=== PATIENT | female | born 1990 | race Caucasian/White ===

== ENCOUNTER 2019-07-19 10:49 | Emergency (ER) | payer SELFPAY ==
[~2019-07-19] VITALS: Ht 162.6 cm; Wt 59.0 kg
[2019-07-19] MEDS ORDERED: IV NORMAL SALINE 1000 ML BAG IV ONE (11:00)
[2019-07-19 11:07] LABS: BASOPHILS # (AUTO) 0.2 K/uL (0.0-8.0); BASOPHILS % (AUTO) 2.6 % (0.0-2.0); EOSINOPHILS # (AUTO) 0.3 K/uL (0.0-0.7); EOSINOPHILS % (AUTO) 4.4 % (0.0-7.0); HEMATOCRIT 39.8 % (31.2-41.9); HEMOGLOBIN 13.1 g/dL (10.9-14.3); LYMPHOCYTES # (AUTO) 1.9 K/uL (20.0-40.0); LYMPHOCYTES % (AUTO) 26.8 % (20.5-51.5); MEAN CORPUSCULAR HEMOGLOBIN 31.2 uug (24.7-32.8); MEAN CORPUSCULAR HGB CONC 33 g/dL (32.3-35.6); MONOCYTES # (AUTO) 0.5 K/uL (2.0-10.0); MONOCYTES % (AUTO) 6.9 % (0.0-11.0); NEUTROPHILS # (AUTO) 4.2 K/uL (1.8-8.9); NEUTROPHILS % (AUTO) 59.3 % (38.5-71.5); PLATELET COUNT (AUTO) 269 K/uL (179-408); RED BLOOD CELL COUNT(AUTO) 4.18 MIL/uL (3.63-4.92); WHITE BLOOD COUNT (AUTO) 7.1 K/uL (3.8-11.8)
--- NOTE | 2019-07-19 11:08 | NUR ---
PT WAS BIB [employer]UR[employer] FROM [facility] [employer] ON [employer]EL [employer]. PT RELUCTANT TO TALK BUT MANAGED TO SAY THAT THE PT HAS ETOH PROBLEM AND TAKED BENZO TO CONTROL SHAKING. PT WAS ON METH BUT STOPPED IT 2 WEEKS AGO BECAUSE IT MADE HER SHAKE MORE.
[2019-07-19 11:13] LABS: CREATININE 0.6 mg/dL (0.6-1.3); POTASSIUM 3.8 mmol/L (3.5-5.1)
[2019-07-19 11:19] LABS: BILIRUBIN,DIRECT 0.2 mg/dL (0.0-0.2); BILIRUBIN,TOTAL 0.6 mg/dL (0.2-1.0); TOTAL PROTEIN, SERUM 7.8 g/dL (6.4-8.2)
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
--- NOTE | 2019-07-19 12:33 | NUR ---
PT RESTING, AROUSABLE, ON MONITOR. VSS.
--- NOTE | 2019-07-19 15:00 | NUR ---
HOSPTAL SANDWICH AND JUICE PROVIDED OR PT.
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
--- NOTE | 2019-07-19 15:55 | NUR ---
NNEKA, TRAFFIC LINE PAINTER AT BEDSIDE.
--- NOTE | 2019-07-19 16:34 | NUR ---
Patient discharged to home in stable conditon. Written and verbal after care instructions given. Patient verbalizes understanding of instructions.PT WALKS IN STEADY GAIT. PT AXOX4, SPEECH CLEAR AND COHERENT.
[2019-07-19 16:36] VITALS: BP 112/67
--- NOTE | 2019-07-19 16:55 | NUR ---
4:00pm: JIMY met with patient, per request for a SS consultation. Patient is a 28 year old female, alert, oriented, receptive to speaking with this SW. Patient states a male friend dropped her off at the hospital, and he left. Patient states she had been drinking yesterday, and was not feeling well when brought to the hospital. Patient stated she was living with the male friend that dropped her off at the hospital, but wanted to go to her boyfriend Hi Bravo's house. Patient did not have her cell phone with her, and did not know her boyfriend's phone number in order to call him. SW discussed intermediate options with the patient, but patient declined them. Patient stated she will go to [employer] and buy a new phone. SW offered a 1-day metro card to the patient, and patient accepted. Metro card given. JIMY also provided patient with the homeless resource packet, which includes a list of medical clinics and mental health agencies, a list of substance abuse treatment programs, and list of pharmacies, and the [facility] Homeless Directory which includes a list of places homeless individuals can go for hot meals, showers, and food pantries. SW also provided patient with a list of homeless shelters in [place], just in case patient changed her mind, and patient was receptive to all this information provided. Homeless shelters included: [facility], [facility], [facility], and [facility]. Patient was also provided with a meal. Patient's clothes were clean, and she also had many other articles of clothing in her belongings. No SI present. Patient signed the homeless waiver program, and JIMY filed the signed waiver in patient's ED chart. Patient gathered her belongings and exited the ED with stable gait and all resources provided.
== END 2019-07-19 16:36 | disposition home or self-care (01) ==
LOC: ER 10:49
DX: F10.129 Alcohol abuse with intoxication, unspecified (principal); F15.10 Other stimulant abuse, uncomplicated; Y90.8 Blood alcohol level of 240 mg/100 ml or more
CPT/HCPCS: 36415; 80048; 80076; 84702; 85025; 99283; G0480; A4663; J7030